=== PATIENT | female | born 1990 | race African-American/Black ===

== ENCOUNTER 2016-07-16 14:08 | Emergency (ER) | payer MEDICAID ==
[~2016-07-16] VITALS: Ht 165.1 cm; Wt 66.0 kg
[2016-07-16] MEDS ORDERED: KETOROLAC 60MG/2ML VIAL IM ONE (16:45)
[2016-07-16] MEDS ORDERED: DEXAMETHASONE 10MG/ML 1ML VIAL IM ONE (16:45)
[2016-07-16 18:51] VITALS: BP 111/72
== END 2016-07-16 18:52 | disposition home or self-care (01) ==
LOC: ER 15:45
DX: J02.9 Acute pharyngitis, unspecified (principal); R13.10 Dysphagia, unspecified; R07.0 Pain in throat
CPT/HCPCS: 96372; 99284; J1100; J1885; Z7610

== ENCOUNTER 2020-10-12 16:46 | Emergency (ER) | payer MEDICAID, OTHER ==
[~2020-10-12] VITALS: Ht 167.6 cm; Wt 70.0 kg
[2020-10-12 16:48] VITALS: BP 130/78
[2020-10-12] MEDS ORDERED: VISCOUS LIDOCAINE 2% 15 ML UDC PO STA (17:28)
[2020-10-12] MEDS ORDERED: MAGNESIUM/ALUMINUM HYDROXIDE/SIMETHICONE 30ML UDC PO STA (17:28)
[2020-10-12] MEDS ORDERED: ONDANSETRON 4MG ODT PO ONE (18:15)
[2020-10-12 18:32] LABS: BASOPHILS % 0.6 % (0.0-2.0); EOSINOPHILS % 0.3 % (0.0-5.0); HEMOGLOBIN. 14.3 g/dL (12.0-16.0); LYMPHOCYTES % 20.8 % (20.0-50.0); MEAN CORPUSCULAR HEMOGLOBIN 31.5 pg (28.0-32.0); MEAN CORPUSCULAR VOLUME 90.6 fL (81.0-99.0); MEAN PLATELET VOLUME 7.6 fl (7.4-10.4); MONOCYTES % 3.8 % (2.0-8.0); NEUTROPHILS % 74.5 % (40.0-76.0); PLATELET 301 x1000/uL (130-400); RED BLOOD CELL COUNT 4.53 mill/uL (4.2-5.4); RED CELL DISTRIBUTION WIDTH 13.2 % (11.6-14.6)
[2020-10-12 18:37] LABS: CHLORIDE 105 mEq/L (98-107)
[2020-10-12 18:51] LABS: INR 1.1; PROTHROMBIN TIME 11.8 sec (9.6-11.0)
[2020-10-12 18:56] LABS: CLARITY URINE CLOUDY (CLEAR); COLOR URINE YELLOW (YELLOW); KETONES URINE 2+ (NEGATIVE); LEUKOCYTE ESTERASE URINE 1+ (NEGATIVE); NITRITE URINE NEGATIVE (NEGATIVE); OCCULT BLOOD URINE 2+ (NEGATIVE); PROTEIN URINE NEGATIVE (NEGATIVE); SPECIFIC GRAVITY URINE 1.032 (1.005-1.030); UROBILINOGEN URINE 0.2 E.U./dL (0.2-1.0)
[2020-10-12] MEDS ORDERED: POTASSIUM CHLORIDE 20MEQ TABLET SR PO ONE (19:30)
[2020-10-12] MEDS ORDERED: ONDA8TAB13 MT (19:35)
== END 2020-10-12 21:06 | disposition home or self-care (01) ==
LOC: ER 17:27
DX: R11.0 Nausea (principal); K21.9 Gastro-esophageal reflux disease without esophagitis
CPT/HCPCS: 36415; 80053; 81003; 81025; 84484; 85025; 93005; 99284